=== PATIENT | female | born 1995 | race African-American/Black ===

== ENCOUNTER 2019-03-18 10:31 | Emergency (ER) | payer OTHER ==
[~2019-03-18] VITALS: Ht 154.9 cm; Wt 49.9 kg
[~2019-03-18 10:31] MED LIST: KEFLEX500 MG PO; PRENATAL VITAMI1 TA3 PO
== END 2019-03-18 18:13 | disposition home or self-care (01) ==
LOC: ER 10:31
DX: R10.13 Epigastric pain (principal)

== ENCOUNTER 2019-10-09 17:58 | Emergency (ER) | payer OTHER ==
[~2019-10-09] VITALS: Ht 152.4 cm; Wt 47.2 kg
== END 2019-10-09 21:19 | disposition home or self-care (01) ==
LOC: ER 17:58
DX: J45.998 Other asthma (principal); B96.0 Mycoplasma pneumoniae [M. pneumoniae] as the cause of diseases classified elsewhere

== ENCOUNTER 2020-02-15 08:15 | Emergency (ER) | payer OTHER ==
[~2020-02-15] VITALS: Ht 152.4 cm; Wt 47.6 kg
== END 2020-02-15 14:28 | disposition home or self-care (01) ==
LOC: ER 08:15
DX: K52.89 Other specified noninfective gastroenteritis and colitis (principal); Z33.1 Pregnant state, incidental

== ENCOUNTER 2020-09-20 10:00 | Inpatient (IN) | payer OTHER ==
[~2020-09-20] VITALS: Ht 154.9 cm; Wt 64.4 kg
== END 2020-09-26 11:09 | disposition home or self-care (01) | DRG 807 ==
LOC: LDR 09-24 00:22 → OB/GYN 09-24 04:49
PROVIDERS: ADMIT Obstetrics & Gynecology; ATTEND Obstetrics & Gynecology
PROC: 10E0XZZ Delivery of Products of Conception, External Approach (ICD-10-PCS; principal; 2020-09-24)
PROC: 4A1HXFZ Monitoring of Products of Conception, Cardiac Rhythm, External Approach (ICD-10-PCS; 2020-09-24)
DX: O80 Encounter for full-term uncomplicated delivery (principal); Z37.0 Single live birth; Z3A.39 39 weeks gestation of pregnancy; Z20.822 Contact with and (suspected) exposure to COVID-19

== ENCOUNTER 2020-09-30 09:06 | Emergency (ER) | payer OTHER ==
[~2020-09-30] VITALS: Ht 154.9 cm; Wt 63.5 kg
== END 2020-09-30 11:17 | disposition home or self-care (01) ==
LOC: ER 09:06
DX: L02.412 Cutaneous abscess of left axilla (principal); L02.411 Cutaneous abscess of right axilla

== ENCOUNTER 2021-03-07 22:23 | Emergency (ER) | payer OTHER ==
[~2021-03-07] VITALS: Ht 154.9 cm; Wt 60.3 kg
== END 2021-03-08 03:11 | disposition home or self-care (01) ==
LOC: ER 22:23
DX: N93.8 Other specified abnormal uterine and vaginal bleeding (principal); Z33.1 Pregnant state, incidental

== ENCOUNTER 2021-12-21 15:23 | Emergency (ER) | payer OTHER ==
[~2021-12-21] VITALS: Ht 154.9 cm; Wt 49.9 kg
== END 2021-12-21 18:15 | disposition home or self-care (01) ==
LOC: ER 15:23
DX: O21.9 Vomiting of pregnancy, unspecified (principal)

== ENCOUNTER 2022-02-02 09:19 | Emergency (ER) | payer OTHER ==
[~2022-02-02] VITALS: Ht 154.9 cm; Wt 54.0 kg
[2022-02-02] MEDS ORDERED: CORTISPORIN EAR10 M1 OT (10:03)
== END 2022-02-02 10:35 | disposition home or self-care (01) ==
LOC: ER 09:19
DX: H66.92 Otitis media, unspecified, left ear (principal)

== ENCOUNTER 2022-03-27 05:52 | Emergency (ER) | payer OTHER ==
[~2022-03-27] VITALS: Ht 162.6 cm; Wt 56.7 kg
[~2022-03-27 05:52] MED LIST changes: +CORTISPORIN EAR10 M1 OT
== END 2022-03-27 09:42 | disposition home or self-care (01) ==
LOC: ER 05:52
DX: D17.1 Benign lipomatous neoplasm of skin and subcutaneous tissue of trunk (principal)

== ENCOUNTER 2023-05-11 20:17 | Emergency (ER) | payer OTHER ==
[~2023-05-11] VITALS: Ht 154.9 cm; Wt 55.8 kg
== END 2023-05-11 22:43 | disposition home or self-care (01) ==
LOC: ER 20:17
DX: M54.89 Other dorsalgia (principal); N39.0 Urinary tract infection, site not specified

== ENCOUNTER 2024-05-18 16:53 | Emergency (ER) | payer OTHER ==
[~2024-05-18] VITALS: Ht 157.5 cm; Wt 63.5 kg
[~2024-05-18 16:53] MED LIST changes: +ONDANSETRON ODT8 MG PO; +PEPCID AC20 MG PO
[2024-05-18] MEDS ORDERED: ACETAMINOPHEN 500 MG GEL..CAP PO ONE (17:28)
[2024-05-18 19:36] LABS: HEMATOCRIT 37.1 % (36.0-45.00); HEMOGLOBIN 12.5 g/dL (12.0-15.00); MEAN CELL VOLUME 84.6 fL (80.00-100.00); MEAN CORPUSCULAR HEMOGLOBIN 28.5 pg (27.00-32.0); MEAN CORPUSCULAR HGB CONC 33.7 g/dl (32.0-36.0); PLATELET COUNT 196 K/uL (150-450); RED BLOOD COUNT 4.39 M/uL (4.00-6.00); RED CELL DISTRIBUTION WIDTH 13.4 % (11.5-14.5)
[2024-05-18 20:06] LABS: PARTIAL THROMBOPLASTIN TIME 31.7 SECONDS (22.0-34.0); PROTHROMBIN TIME 10.9 SECONDS (9.0-11.5)
[2024-05-18 20:14] LABS: ALBUMIN 3.6 gm/dL (3.4-5.0); BILIRUBIN TOTAL 0.39 mg/dL (0.3-1.2); CREATININE SERUM 0.74 mg/dL (0.55-1.02); GFR 94.14; GLOBULINA 4.2 G/DL (2.4-3.5); POTASSIUM 3.76 mEq/L (3.5-5.1); TOTAL PROTEIN 7.8 gm/dL (6.4-8.2)
[2024-05-18] MEDS ORDERED: KETOROLAC TROMETHAMINE 30 MG VIAL IM STA (20:54)
[2024-05-18] MEDS ORDERED: KETOROLAC TROMETHAMINE 30 MG VIAL ONE (21:01)
== END 2024-05-18 21:05 | disposition home or self-care (01) ==
LOC: ER 16:54
PROVIDERS: General Practice
DX: R50.9 Fever, unspecified (principal); Z20.822 Contact with and (suspected) exposure to COVID-19

== ENCOUNTER → 2024-10-03 | Emergency (ER) | payer OTHER ==
[~2024-10-03] VITALS: Ht 157.5 cm; Wt 63.0 kg
== END | disposition home or self-care (01) ==
LOC: ER 15:21
DX: J06.9 Acute upper respiratory infection, unspecified (principal); Z20.822 Contact with and (suspected) exposure to COVID-19

== ENCOUNTER 2025-04-11 13:22 | Emergency (ER) | payer OTHER ==
[~2025-04-11] VITALS: Ht 157.5 cm; Wt 63.0 kg
[2025-04-11] MEDS ORDERED: RINGERS SOLUTION,LACTATED 500 ML IV STA (14:18)
[2025-04-11 14:40] LABS: BASO % 0.7 % (0.1-1.2); EOS # 0.09 (0.04-0.54); EOS % 2.0 % (0.7-7.0); LYMPH # 1.11 (1.18-3.74); LYMPH % 24.7 % (19.3-53.1); MEAN PLATELET VOLUME 8.80 fl (9.4-12.4); MONO # 0.44 (0.24-0.82); MONO % 9.8 % (4.7-12.5); NEUT # 2.80 (1.56-6.13); NEUT % 62.4 % (34.0-71.1); RED CELL DISTRIBUTION WIDTH 12.4 % (11.6-14.4)
[2025-04-11 15:07] LABS: URINE APPEARANCE Clear; URINE BILIRRUBIN Negative (NEGATIVE); URINE BLOOD Large; URINE COLOR Yellow; URINE GLUCOSE Negative (NEGATIVE); URINE KETONE Trace (NEGATIVE); URINE LEUKOCYTE Negative; URINE NITRATE Negative; URINE PROTEIN Trace (NEGATIVE); URINE UROBILINOGEN 1.0 E.U./dl
[2025-04-11 15:10] LABS: URINE BACTERIA 191.9 uL (0.0-1933); URINE EPITHELIAL CELLS 8.1 uL (0.0-38.8); URINE RBC 4938.9 uL (0.0-20.8); URINE WBC 12.7 uL (0.0-23.2)
[2025-04-11 15:17] LABS: URINE CAST 0.29 uL (0.0-1.40)
[2025-04-11 15:34] LABS: ALT/SGPT 18.0 U/L (12-78); AST/SGOT 11.0 U/L (15-37); BILIRUBIN TOTAL 0.35 mg/dL (0.3-1.2); BUN CREA RATIO 13.0 (7.0-25.0); CREATININE SERUM 0.62 mg/dL (0.55-1.02); GFR 114.62; GLOBULINA 3.6 G/DL (2.4-3.5); GLUCOSE FASTING 90.0 mg/dL (65-100); HCG QUANTITATIVE 13083.0 mUI/mL (1-3); OSMOLALITY SERUM 283.0 MOSM/KG (275-295)
== END 2025-04-11 17:12 | disposition home or self-care (01) ==
LOC: ER 13:32
PROVIDERS: General Practice
DX: O20.8 Other hemorrhage in early pregnancy (principal); Z3A.01 Less than 8 weeks gestation of pregnancy